=== PATIENT | female | born 1980 | race Caucasian/White ===

== ENCOUNTER 2024-05-25 09:24 | Emergency (ER) | payer MEDICAID, SELFPAY ==
[2024-05-25] VITALS (21 sets, daily range): BP systolic 145–174; BP diastolic 87–109; PULSE 59–76; RESP 12–19; TEMP 36.2–36.4; O2SAT 95–100
--- NOTE | ~2024-05-25 | XR_ITS ---
XR chest 1V portable Ordering provider: Kamran Veliz MD History: 44 years Female with . chest pain, hypertension . Comparison: None. FINDINGS: MEDIASTINUM: The cardiac silhouette is not enlarged. LUNGS: No infiltrates, effusions or pneumothorax. Slightly prominent markings in the lower lobes. OTHER: No free air under the diaphragm. Degenerative changes of the spine. IMPRESSION: Prominent markings in the lower lobes. Otherwise, No acute cardiopulmonary pathology. Reviewed, dictated and finalized at location A.
--- NOTE | 2024-05-25 09:29 | ED.CHESTPAIN ---
HPI - Chest Pain General Chief Complaint: Chest Pain Stated Complaint: hypertension Time Seen by Provider: 05/25/24 09:29 Source: patient Mode of arrival: ambulatory Limitations: no limitations History of Present Illness HPI narrative: 44-year-old female smoker with a history of migraine presents to the ED with a 2 week history of -- sternal pressure which is rated as 4/10. not related to exercise. -- Elevated blood pressure. her blood pressure today was noted to be 148/104 -- shortness of breath. no cough or sputum production -- anxiety MD complaint: chest pain Onset (ago): week(s) ( Two weeks) Timing of current episode: episodic Prior episodes: No Onset: during rest Pain location: substernal Pain radiation: none Severity: mild Pain scale (0-10): 4 Quality: heaviness Relieving factors: nothing Exacerbating factors: nothing Associated symptoms: nausea Treatment prior to arrival: none Risk Factors Coronary artery disease risk factors: smoking history Thoracic aortic dissection risk factors: none Related Data On Oral Contraceptives: No Home Medications Medication Instructions Recorded Confirmed No Home Medications 05/25/24 05/25/24 Allergies Allergy/AdvReac Type Severity Reaction Status Date / Time Penicillins Allergy Rash Verified 05/25/24 09:30 Review of Systems Review of Systems: All systems reviewed & are unremarkable except as noted in HPI and below Constitutional: Constitutional: Reports as per HPI and Reports no additional constitutional complaints Eyes: Eyes: Reports as per HPI and Reports no additional eye complaints ENT: Reports system reviewed and no additional complaints, except as documented and Reports as per HPI Cardiovascular: Cardiovascular: Reports as per HPI, Reports no additional cardiovascular complaints and Reports chest pain Respiratory: Respiratory: Reports as per HPI, Reports no additional respiratory complaints and Reports dyspnea Gastrointestinal: Gastrointestinal: Reports as per HPI and Reports no additional gastrointestinal complaints Genitourinary: Genitourinary: Reports no additional female genitourinary complaints and Reports as per HPI Musculoskeletal: Musculoskeletal: Reports no additional musculoskeletal complaints and Reports as per HPI Integumentary/Breasts: Skin/Breast: Reports system reviewed and no additional complaints, except as docu and Reports as per HPI Neurologic: Reports system reviewed and no additional complaints, except as documented and Reports as per HPI Psychiatric: Psychiatric: Reports no additional psychiatric complaints, Reports as per HPI and Reports anxiety Endocrine: Endocrine: Reports no additional endocrine complaints and Reports as per HPI Hematologic/Lymphatic: Hematologic/Lymphatic: Reports no additional hematologic/lymphatic complaints and Reports as per HPI Allergic/Immunologic: Allergic/Immunologic: Reports no additional allergic/immunologic complaints and Reports as per HPI [facility] Past Medical History Medical History (Updated 05/25/24 @ 10:55 by Kamrna Veliz MD) Migraine Social History Social History (Updated 05/25/24 @ 09:49 by Kamran Veliz MD) Social History: smoker for many years. Has been vaping for the past 2 years Exam Narrative: blood pressure is 170/96 oxygen saturation of 98% on room air with a respiratory rate of 16 Const: General: healthy appearing and no acute distress Nutritional Appearance: well nourished Orientation/consciousness: patient oriented x3 Limitations: no limitations HENMT: Head: normal to inspection Ears: external ears normal Face/Nose/Sinus: Normal external nose present Face and sinus: normal facial exam Mouth: Yes Normal oral and palatal mucosa present Throat: posterior oropharynx normal Eyes: Conjunctivae: conjunctivae normal Pupils: Equal, round and reactive pupils present EOM: EOMs intact bilaterally Direct Ophthalmoscopy: no photophobia Neck: Neck:
--- NOTE | 2024-05-25 09:31 | ECG_ITS ---
Test Date: 2024-05-25 09:35:28 Measurements Intervals [place] Rate: 70 P: 56 MT: 160 QRS: -13 QRSD: 100 T: 30 QT: 391 QTc: 422 Interpretive Statements SINUS RHYTHM NONSPECIFIC T-WAVE ABNORMALITY No previous ECG available for comparison Electronically Signed On 05-25-2024 10:46:27 CDT by Viky Delacruz M.D.
[2024-05-25 09:46] LABS: Basophils Absolute Auto 0.04 K/mm3 (0.00-0.10); Basophils Percent Auto 0.5 % (0.0-1.0); Eosinophils Absolute Auto 0.15 K/mm3 (0.02-0.50); Hematocrit 42.4 % (35.0-49.0); Hemoglobin 14.3 g/dL (12.0-15.0); Immature Granulocyte Absolute 0.05 K/mm3 (0.00-0.00); Immature Granulocyte Percent A 0.7 % (0.0-0.0); Lymphocytes Absolute Auto 1.43 K/mm3 (1.10-4.50); Lymphocytes Percent Auto 19.5 % (18.0-42.0); Mean Corpuscular HGB Conc 33.7 g/dL (32-36); Mean Corpuscular Hemoglobin 29.8 pg (27.0-31.0); Mean Corpuscular Volume 88.3 fL (78.0-102.0); Mean Platelet Volume 9.4 fl (9.2-11.8); Monocytes Percent Auto 5.4 % (2.0-11.0); Neutrophils Absolute Auto 5.28 K/mm3 (1.70-7.20); Neutrophils Percent Auto 71.9 % (50.0-70.0); Platelet Count Result 207 K/mm3 (150-420); Red Cell Distribution Width 12.8 % (11.6-14.4); White Blood Count 7.4 K/mm3 (4.8-10.8)
[2024-05-25 10:01] LABS: INR 0.9; Partial Thromboplastin Time 27.4 Sec (23.9-30.70); Prothrombin Time 10.3 Seconds (9.50-12.1)
[2024-05-25 10:03] LABS: Add Urine Microscopic? YES; Appearance Urine Clear (Clear); Bilirubin Urine Negative (Negative); Blood Urine 2+ (Negative); Color Urine Light Yellow (Yellow); Glucose Urine UA Negative (Negative); Ketones Urine Negative (Negative); Leukocyte Esterase Ur 2+ LEU/UL (Negative); Nitrate Urine Negative (Negative); Protein Urine Negative (Negative); Specific Grav Ur 1.015 (1.010-1.020); Urobilinogen Urine 0.2 mg/dL (0.2-1.0)
[2024-05-25 10:04] LABS: Pregnancy On Board Control Positive; Urine Pregnancy Test Negative
[2024-05-25 10:07] LABS: Lactic Acid Reflex 1.3 mmol/L (0.4-2.0)
[2024-05-25 10:09] LABS: Bacteria Urine 2+ /hpf; Squamous Epithelial Cell Urine Moderate /hpf (Few)
[2024-05-25 10:13] LABS: Alanine Aminotransferase 16 U/L (14-59); Albumin Level 3.6 g/dL (3.4-5.0); Alkaline Phosphatase 80 U/L (46-116); Anion Gap 7 mmol/L (4-12); Aspartate Amino Transferase 15 U/L (15-37); Bilirubin,Total 0.7 mg/dL (0.00-1.00); Blood Urea Nitrogen 9 mg/dL (7-18); Calcium 8.5 mg/dL (8.5-10.1); Carbon Dioxide 30 mmol/L (21-32); Chloride 101 mmol/L (98-108); Estimated CRCL calculation 88 ml/min; Estimated Glomerular Filt Rate > 60; Glucose 89 mg/dL (70-99); NT Pro B Type Natriuretic Pept 118 pg/mL (0-125); Osmolality Calculated 283 mOsm/kg (285-295); Potassium 3.5 mmol/L (3.5-5.1); Sodium 138 mmol/L (136-145); Total Protein 6.9 g/dL (6.4-8.2)
[2024-05-25 10:16] LABS: Thyroid Stimulating Hormone 2.66 uIU/mL (0.36-3.74); Troponin I 4.5 ng/L (0.00-60.4)
== END 2024-05-25 11:13 | disposition home or self-care (01) ==
PROVIDERS: Emergency Provider Internal Medicine Critical Care Medicine
DX: R07.89 Other chest pain (principal); F41.9 Anxiety disorder, unspecified; I10 Essential (primary) hypertension; F17.290 Nicotine dependence, other tobacco product, uncomplicated
CPT/HCPCS: 36415; 71045; 80053; 81001; 81025; 83605; 83880; 84443; 84484; 85025; 85380; 85610; 85730; 87086; 87088; 93005; 99284

== ENCOUNTER 2024-06-03 16:53 | Outpatient (CLI) | payer MEDICAID, SELFPAY ==
[2024-06-03 17:19] LABS: Basophils Absolute Auto 0.06 K/mm3 (0.00-0.10); Basophils Percent Auto 0.7 % (0.0-1.0); Eosinophils Absolute Auto 0.23 K/mm3 (0.02-0.50); Eosinophils Percent Auto 2.6 % (1.0-6.0); Hematocrit 40.1 % (35.0-49.0); Hemoglobin 13.7 g/dL (12.0-15.0); Immature Granulocyte Absolute 0.04 K/mm3 (0.00-0.00); Immature Granulocyte Percent A 0.4 % (0.0-0.0); Lymphocytes Absolute Auto 1.99 K/mm3 (1.10-4.50); Lymphocytes Percent Auto 22.3 % (18.0-42.0); Mean Corpuscular HGB Conc 34.2 g/dL (32-36); Mean Corpuscular Hemoglobin 29.8 pg (27.0-31.0); Mean Corpuscular Volume 87.4 fL (78.0-102.0); Mean Platelet Volume 9.6 fl (9.2-11.8); Monocytes Absolute Auto 0.41 K/mm3 (0.10-0.90); Monocytes Percent Auto 4.6 % (2.0-11.0); Neutrophils Percent Auto 69.4 % (50.0-70.0); Platelet Count Result 251 K/mm3 (150-420); Red Blood Count 4.59 M/mm3 (4.20-5.40); Red Cell Distribution Width 12.6 % (11.6-14.4); White Blood Count 8.9 K/mm3 (4.8-10.8)
[2024-06-03 17:22] LABS: Add Urine Microscopic? YES; Appearance Urine Clear (Clear); Bilirubin Urine Negative (Negative); Blood Urine 2+ (Negative); Color Urine Light Yellow (Yellow); Glucose Urine UA Negative (Negative); Ketones Urine Negative (Negative); Leukocyte Esterase Ur Trace LEU/UL (Negative); Nitrate Urine Negative (Negative); Protein Urine Negative (Negative); Specific Grav Ur 1.025 (1.010-1.020); Urobilinogen Urine 0.2 mg/dL (0.2-1.0)
[2024-06-03 17:28] LABS: Bacteria Urine Trace /hpf; Squamous Epithelial Cell Urine Few /hpf (Few); WBC Urine None seen /hpf (0-3)
[2024-06-03 17:59] LABS: Alanine Aminotransferase 19 U/L (14-59); Albumin Level 3.8 g/dL (3.4-5.0); Alkaline Phosphatase 86 U/L (46-116); Anion Gap 8 mmol/L (4-12); Aspartate Amino Transferase 14 U/L (15-37); Bilirubin,Total 0.5 mg/dL (0.00-1.00); Blood Urea Nitrogen 13 mg/dL (7-18); Calcium 8.9 mg/dL (8.5-10.1); Carbon Dioxide 30 mmol/L (21-32); Chloride 103 mmol/L (98-108); Estimated Glomerular Filt Rate > 60; Glucose 104 mg/dL (70-99); Osmolality Calculated 292 mOsm/kg (285-295); Potassium 3.6 mmol/L (3.5-5.1); Sodium 141 mmol/L (136-145); Total Protein 6.4 g/dL (6.4-8.2); Vitamin B12 308 pg/mL (193-986)
[2024-06-03 18:21] LABS: Erythrocyte Sedimentation Rate 26 mm/hr (0-15)
[2024-06-04 08:08] LABS: FSH 18.8 mIU/mL; LH 7.6 mIU/mL; Prolactin 5.6 ng/mL; Vitamin D 25 Hydroxy 29 ng/mL (30-100)
[2024-06-13 23:54] LABS: Estradiol, Ultrasensitive 15 pg/mL
== END 2024-06-03 16:54 | disposition home or self-care (01) ==
LOC: CHSLAB 16:57
PROVIDERS: PCP Family Medicine; Visit Provider Family Medicine
DX: I10 Essential (primary) hypertension (principal); N92.6 Irregular menstruation, unspecified
CPT/HCPCS: 36415; 80053; 81001; 82306; 82607; 82670; 83001; 83002; 84146; 85025; 85652

== ENCOUNTER 2024-06-04 07:43 | Outpatient (CLI) | payer MEDICAID, SELFPAY ==
[2024-06-04 08:31] LABS: Cholesterol 182 mg/dL (0-200); HDL Direct 44 mg/dL (40-60); LDL Cholesterol Calculated 123 mg/dL (<130); Triglycerides 77 mg/dL (0-150)
== END 2024-06-04 07:44 | disposition home or self-care (01) ==
LOC: CHSLAB 07:45
PROVIDERS: PCP Family Medicine; Visit Provider Family Medicine
DX: I10 Essential (primary) hypertension (principal)
CPT/HCPCS: 36415; 80061

== ENCOUNTER 2024-08-22 17:00 | Emergency (ER) | payer OTHER, SELFPAY ==
[2024-08-22] VITALS (12 sets, daily range): BP systolic 105–160; BP diastolic 62–89; PULSE 74–88; RESP 14–26; TEMP 36.5; O2SAT 92–100
--- NOTE | ~2024-08-22 | XR_ITS ---
CHEST RADIOGRAPH CLINICAL HISTORY: cp hx high bp . COMPARISON: 05/25/2024 TECHNIQUE: Single portable view of the chest. FINDINGS The cardiomediastinal silhouette is unremarkable. The lungs are clear. Visualized osseous structures and soft tissues are unremarkable. IMPRESSION: No focal infiltrate or effusion. Reviewed, dictated and finalized at location A. NT CAREGIVER
--- NOTE | 2024-08-22 17:05 | ECG_ITS ---
Test Date: 2024-08-22 17:11:14 Measurements Intervals [place] Rate: 80 P: 59 [place]: 155 QRS: -20 QRSD: 109 T: 25 QT: 369 QTc: 427 Interpretive Statements SINUS RHYTHM WITH OCCASIONAL VENTRICULAR PREMATURE COMPLEXES ST DEVIATION AND MODERATE T-WAVE ABNORMALITY, CONSIDER ANTERIOR ISCHEMIA BASELINE ARTIFACT- AVR, V1, V3-V6 ABNORMAL ECG Compared to ECG 05/25/2024 09:35:28 POSSIBLE ISCHEMIA NOW PRESENT Electronically Signed On 08-22-2024 18:24:23 RICE FARMWORKER by Eric Howell D.O.
--- NOTE | 2024-08-22 17:06 | ED_ITS ---
HPI - Chest Pain General Chief Complaint: Chest Pain Stated Complaint: chest pain Time Seen by Provider: 08/22/24 17:05 History of Present Illness HPI narrative: Pt presents with chest tightness and nausea since 1500 today. Pt was riding in car when it started. Pt says she has some history of palpitations and cp but CP not this bad. Pt rates 7/10. Denies precip or relieving factors. Pt vapses and has HTN, no other risk factors. Related Data Home Medications Medication Instructions Recorded Confirmed amlodipine 10 mg tablet 10 mg PO DAILY 08/22/24 08/22/24 Allergies Allergy/AdvReac Type Severity Reaction Status Date / Time Penicillins Allergy Rash Verified 08/22/24 17:05 Review of Systems Review of Systems: All systems reviewed & are unremarkable except as noted in HPI and below PMFSH Past Medical History Medical History (Updated 08/22/24 @ 18:54 by Sushila Michael III, DO) Migraine Social History Social History (Updated 05/25/24 @ 09:49 by Kamran Veliz MD) Social History: smoker for many years. Has been vaping for the past 2 years Exam Const: General: healthy appearing and no acute distress Nutritional Appearance: well nourished Orientation/consciousness: patient oriented x3 Limitations: no limitations Neck: Neck: normal visual inspection Chest: Chest palpation & inspection: normal inspection of the chest Resp: Effort & Inspection: normal respiratory effort Auscultation: clear to auscultation bilaterally Cardio: Rate: regular rate Rhythm: regular rhythm GI: GI Palp: Yes Soft to palpation and No Tenderness to palpation present (GI) Auscultation: normal bowel sounds Skin: General skin exam: normal color Rashes: no rashes Wounds: no wounds Neuro: General: patient oriented x3, moves all extremities, no meningeal signs and no focal motor deficits Speech: normal speech Extrem: General: normal to inspection and no clubbing, cyanosis or edema Psych: Mental Status: mental status grossly normal Affect: Anxious affect present Attitude: cooperative Course Vital Signs Vital signs: Vital Signs Temperature 97.7 F 08/22/24 17:00 Pulse Rate 88 08/22/24 17:00 Respiratory Rate 20 08/22/24 17:00 Blood Pressure 160/89 H 08/22/24 17:00 Pulse Oximetry 99 08/22/24 17:00 Oxygen Delivery Room Air 08/22/24 17:00 Temperature 97.7 F 08/22/24 17:00 Pulse Rate 75 08/22/24 19:31 Respiratory Rate 16 08/22/24 19:31 Blood Pressure 133/79 08/22/24 19:31 Pulse Oximetry 94 08/22/24 19:31 Oxygen Delivery Room Air 08/22/24 17:00 MDM - Chest Pain MDM Narrative Medical decision making narrative: Pt presents with chest tightness since [address] changes v3-v6 which are new. will treat like unstable angina and get labs and cxr and give asa and nitrates and morphine. 1800. Pt pain free. first trop neg. will check repeat ekg and transfer. repeat ekg unchanged. discussed with Ruthie Clemente at [facility] will accept for Dr hernandez. Differential Diagnosis Differential diagnosis: Likely pneumothorax, stable angina, unstable angina pectoris, atypical chest pain, st elevation myocardial infarction, costochondritis, chest pain and other (anxiety) Lab Data 08/22/24 17:17 08/22/24 17:17 Labs: Lab Results 08/22/24 Range/Units 17:17 WBC 8.1 (4.8-10.8) K/mm3 RBC 4.94 (4.20-5.40) M/mm3 Hgb 14.8 (12.0-15.0) g/dL Hct 42.7 (35.0-49.0) % MCV 86.4 (78.0-102.0) fL MCH 30.0 (27.0-31.0) pg MCHC 34.7 (32-36) g/dL RDW 12.6 (11.6-14.4) % Plt Count 223 (150-420) K/mm3 MPV 9.1 L (9.2-11.8) fl Immature Gran % (Auto) 0.7 H (0.0-0.0) % Neut % (Auto) 71.9 H (50.0-70.0) % Lymph % (Auto) 20.9 (18.0-42.0) % [place] % (Auto) 4.1 (2.0-11.0) % Eos % (Auto) 1.9 (1.0-6.0) % Baso % (Auto) 0.5 (0.0-1.0) % Lymph # (Auto) 1.69 (1.10-4.50) K/mm3 [place] # (Auto) 0.33 (0.10-0.90) K/mm3 Eos # (Auto) 0.15 (0.02-0.50) K/mm3 Baso # (Auto) 0.04 (0.00-0.10) K/mm3 Abs Immat Gran (auto) 0.06 H (0.00-0.00) K/mm3 Absolute Neuts (auto) 5.81 (1.70-7.20) K/mm3 Absolute Nucleated RBC 0.00 (0.00-0.00) K/mm3 Nucleated RBC % 0.0 (0-0.0) % PT 10.3 (9.50-12.1) Seconds INR 0.9 APTT 27.9 (23.9-30.70) Sec Sodium 142 (136-145) mmol/L Potassium 3.3 L (3.5-5.1) mmol/L Chloride 103 (98-108) mmol/L Carbon Dioxide 27 (21-32) mmol/L Anion Gap 12 (4-12) mmol/L BUN 11 (7-18) mg/dL Creatinine 1.00 (0.55-1.02) mg/dL Estim Creat Clear Calc 80 ml/min Estimated GFR > 60 (59 - ) Glucose 113 H (70-99) mg/dL Calculated Osmolality 294 (285-295) mOsm/kg Calcium 9.5 (8.5-10.1) mg/dL Total Bilirubin 0.7 (0.00-1.00) mg/dL AST 10 L (15-37) U/L ALT 17 (14-59) U/L Alkaline Phosphatase 72 (46-116) U/L Troponin I 4.9 (0.00-60.4) ng/L NT-Pro-B Natriuret Pep 42 (0-125) pg/mL Total Protein 7.6 (6.4-8.2) g/dL Albumin 3.9 (3.4-5.0) g/dL Lipase 47 (16-77) U/L ECG Data EKG #1: Interpretation: nsr rate 80, t wave inversion v3-v6 Discharge Plan Discharge Clinical Impression: Chest pain, Acute electrocardiography changes Patient Disposition: Acute Care Hospital Condition: Improved Prescriptions: No Action amlodipine 10 mg tablet 10 mg PO DAILY Follow-up/Referrals: Ezra Lowe MD [Primary Care Provider] - Quality HEART score for chest pain patients History: moderately suspicious ECG: significant ST depression Age: < or = to 45 years Risk factors: 1 or 2 risk factors Troponin: < or = to 1x normal limit Heart score: 4
[2024-08-22] MEDS: ASPIRIN 81 MG CHEWABLE TABLET 324 MG PO (17:19)
[2024-08-22] MEDS: NITROGLYCERIN SL 0.4 MG TABLET SUBLINGUAL ×3 (17:20→17:32)
[2024-08-22 17:21] LABS: Basophils Absolute Auto 0.04 K/mm3 (0.00-0.10); Basophils Percent Auto 0.5 % (0.0-1.0); Eosinophils Absolute Auto 0.15 K/mm3 (0.02-0.50); Eosinophils Percent Auto 1.9 % (1.0-6.0); Hematocrit 42.7 % (35.0-49.0); Hemoglobin 14.8 g/dL (12.0-15.0); Immature Granulocyte Absolute 0.06 K/mm3 (0.00-0.00); Immature Granulocyte Percent A 0.7 % (0.0-0.0); Lymphocytes Absolute Auto 1.69 K/mm3 (1.10-4.50); Lymphocytes Percent Auto 20.9 % (18.0-42.0); Mean Corpuscular HGB Conc 34.7 g/dL (32-36); Mean Corpuscular Volume 86.4 fL (78.0-102.0); Mean Platelet Volume 9.1 fl (9.2-11.8); Monocytes Absolute Auto 0.33 K/mm3 (0.10-0.90); Monocytes Percent Auto 4.1 % (2.0-11.0); Neutrophils Absolute Auto 5.81 K/mm3 (1.70-7.20); Neutrophils Percent Auto 71.9 % (50.0-70.0); Platelet Count Result 223 K/mm3 (150-420); Red Blood Count 4.94 M/mm3 (4.20-5.40); Red Cell Distribution Width 12.6 % (11.6-14.4); White Blood Count 8.1 K/mm3 (4.8-10.8)
[2024-08-22] MEDS: MORPHINE SULFATE (*CRX) 2 MG/ML INJ IV PUSH (17:23)
--- NOTE | 2024-08-22 17:39 | PC.NURSE ---
PT REPORTS HER PAIN IS MUCH BETTER, HOWEVER SHE REMAINS ANXIOUS AND TEARFUL. PT DENIES ANY NEEDS OR COMPLAINTS. WILL CONTINUE TO MONITOR.
[2024-08-22 17:43] LABS: Alanine Aminotransferase 17 U/L (14-59); Albumin Level 3.9 g/dL (3.4-5.0); Alkaline Phosphatase 72 U/L (46-116); Anion Gap 12 mmol/L (4-12); Aspartate Amino Transferase 10 U/L (15-37); Bilirubin,Total 0.7 mg/dL (0.00-1.00); Blood Urea Nitrogen 11 mg/dL (7-18); Calcium 9.5 mg/dL (8.5-10.1); Carbon Dioxide 27 mmol/L (21-32); Chloride 103 mmol/L (98-108); Estimated CRCL calculation 80 ml/min; Estimated Glomerular Filt Rate > 60; Glucose 113 mg/dL (70-99); INR 0.9; Lipase 47 U/L (16-77); NT Pro B Type Natriuretic Pept 42 pg/mL (0-125); Osmolality Calculated 294 mOsm/kg (285-295); Partial Thromboplastin Time 27.9 Sec (23.9-30.70); Potassium 3.3 mmol/L (3.5-5.1); Prothrombin Time 10.3 Seconds (9.50-12.1); Sodium 142 mmol/L (136-145); Total Protein 7.6 g/dL (6.4-8.2); Troponin I 4.9 ng/L (0.00-60.4)
--- NOTE | 2024-08-22 18:06 | ECG_ITS ---
Test Date: 2024-08-22 18:14:35 Measurements Intervals [place] Rate: 70 P: 43 MS: 157 QRS: -16 QRSD: 99 T: -74 QT: 379 QTc: 410 Interpretive Statements SINUS RHYTHM MODERATE T-WAVE ABNORMALITY, CONSIDER ANTERIOR ISCHEMIA BASELINE ARTIFACT- I, II, III, AVR, AVL, AVF ABNORMAL ECG Compared to ECG 08/22/2024 17:11:14 NO SIGNIFICANT CHANGE Electronically Signed On 08-22-2024 18:25:02 VERIFICATION REP by Eric Howell D.O.
--- NOTE | 2024-08-22 18:11 | PC.NURSE ---
PT IS PAIN FREE AT THIS TIME. REPEAT EKG IS BEING COMPLETED. EX- AND SON HAVE ARRIVED. WILL CONTINUE TO MONITOR.
[2024-08-22] MEDS: NITROGLYCERIN OINTMENT 1 INCH DOSE TRANSDERM (18:51)
--- NOTE | 2024-08-22 18:54 | PC.NURSE ---
PT IS TALKING ON CELL PHONE WITHOUT DISTRESS. PT IS AWAITING ROOM ASSIGNMENT AT [facility] AT THIS TIME. PT DENIES ANY PAIN, NAD NOTED. REPORT TO JAMMIE VICTORIA.
--- NOTE | 2024-08-22 19:05 | PC.NURSE ---
Report received, pt resting and continuing to monitor, pt has been accepted at [facility], awaiting callback for bed assignment. New orders received from [facility].
[2024-08-22] MEDS: POTASSIUM CHLORIDE 20 MEQ ER TABLET 40 MEQ PO (19:07)
[2024-08-22] MEDS: ENOXAPARIN 100 MG/ML SYRINGE SUB-Q (19:08)
--- NOTE | 2024-08-22 19:26 | PC.NURSE ---
Pts mother called from [place], per pt ok to update her mother. Informed pts mother of medications given and need for transfer and f/u w/ cardiology due to EKG changes and findings. After speaking w/ mother whe states she feels much better and appreciated this RN speaking w/ her and updating her. Pt continues to rest, monitor NSR and VSS.
--- NOTE | 2024-08-22 19:39 | PC.NURSE ---
Call back from lauryn Lara Sup[facility] and pt will go to Rm 200.
--- NOTE | 2024-08-22 19:45 | PC.NURSE ---
Report given to Nahid in IMU at [facility] for transfer.
[2024-08-22 20:14] LABS: Troponin I 5.2 ng/L (0.00-60.4)
== END 2024-08-22 20:41 | disposition short-term general hospital (02) ==
PROVIDERS: Emergency Provider Emergency Medicine; PCP Family Medicine
DX: R07.9 Chest pain, unspecified (principal); I10 Essential (primary) hypertension; F17.290 Nicotine dependence, other tobacco product, uncomplicated
CPT/HCPCS: 36415; 71045; 80053; 83690; 83880; 84484; 85025; 85610; 85730; 93005; 96372; 96374; 99285; A9270; J1650; J2270

== ENCOUNTER 2024-08-22 22:10 | Observation (INO) | payer OTHER, SELFPAY ==
--- NOTE | ~2024-08-22 | NM_ITS ---
EXAMINATION: NM patrice stress w perfusion DATE: 08/23/2024 14:01 INDICATION: Chest pain TECHNIQUE: Rest images were obtained in supine position following intravenous administration of 11.2 mCi Tc99m tetrofosmin (Myoview). The patient was infused intravenously with Lexiscan (Regadenoson). T hen, 34.7 mCi Tc99m tetrofosmin (Myoview) was administered intravenously, and stress images were obta ined in the supine position. Additional repeat post stress imaging was obtained in the prone position . Data was reconstructed into short axis and horizontal and vertical long axis SPECT images. Gated SP ECT images were also obtained. COMPARISON: None. FINDINGS: There is likely diaphragmatic attenuation artifact along the inferior wall involving the mi d to basilar inferior and inferolateral segments on the stress and more prominently on the rest image s obtained in the supine position which normalizes on the post stress imaging obtained in the prone p osition. Additional likely artifactual regions of decreased activity at the apical inferior segment o n the post stress imaging obtained in the prone position but with normal perfusion at this location o n the post stress imaging in the supine position. There is no definite reversible or fixed perfusion abnormality to suggest ischemia or infarction. There is normal left ventricular chamber size, wall m otion and ejection fraction. Left ventricular ejection fraction measures 54%. IMPRESSION: 1. Normal myocardial perfusion at rest and during stress. 2. Left ventricular ejection fraction measuring 54%. Reviewed, dictated and finalized at location B. PRESIDENT [employer]
[2024-08-22 21:15] VITALS: BP 141/90; PULSE 66; RESP 18; TEMP 36.6; O2SAT 98
[2024-08-22 21:27] VITALS: BMI 35.3
--- NOTE | 2024-08-22 21:28 | ADMGEN ---
5: This patient, Renée Sherwood, was admitted to IMU Room 200-01. Patient/family oriented to hospital policies and general routines including ID bracelet, bed and alarms, visiting hours, pain management, procedures, bathroom and other care routines, personal items, smoking policy, room service/diet, and visiting hours. Information on how to activate the Rapid Response Team has been discussed. Patient/Family are encouraged to report perceived risks to care and to ask questions if they do not understand what they are told or what they should do.
[2024-08-22 21:40] VITALS: BMI 35.3
--- NOTE | 2024-08-22 21:56 | ECG_ITS ---
Test Date: 2024-08-22 22:10:06 Measurements Intervals [place] Rate: 57 P: 45 ND: 158 QRS: -24 QRSD: 97 T: -66 QT: 396 QTc: 388 Interpretive Statements SINUS BRADYCARDIA EARLY PRECORDIAL R/S TRANSITION MODERATE T-WAVE ABNORMALITY, CONSIDER ANT/INF ISCHEMIA BASELINE ARTIFACT- II, III, AVF ABNORMAL ECG Compared to ECG 08/22/2024 18:14:35 HEART RATE HAS DECREASED Electronically Signed On 08-23-2024 05:44:57 [employer]ANESE PROFESSOR by Eric Howell D.O.
[2024-08-22 21:57] VITALS: PULSE 73
[2024-08-22] MEDS: ACETAMINOPHEN 325 MG TABLET 650 MG PO (22:09)
[2024-08-22 23:01] LABS: Cholesterol 175 mg/dL (0-200); HDL Direct 47 mg/dL; Magnesium 2.2 mg/dL (1.6-2.3); Potassium 3.6 mmol/L (3.4-5.0); Triglycerides 85 mg/dL (<150)
--- NOTE | 2024-08-22 23:07 | P.HP_ITS ---
H&P: HPI History of Present Illness Date/Time: 08/22/24 22:00 Chief Complaint: Chest pain, abnormal EKG. Narrative: This is a pleasant 44-year-old female with history of migraine headaches, hypertension, and anxiety who is being directly admitted to the IMU from the emergency department at the [facility] with chest pain and abnormal EKG. The patient provides the following history. While driving home from work this evening she developed sudden onset substernal chest heaviness associated with palpitations and mild nausea and lightheadedness. Initially she thought it was due to anxiety as she has had a lot personal stress at home, much more so than usual. This was different than her normal anxiety however and it did not improve with rest so she went to the emergency department. Vital signs were stable on arrival. Initial troponin was normal and the remainder of her labs were really unremarkable. Chest x-ray was normal. EKG showed ST deviation and T-wave inversions in the anterolateral leads. She was given nitroglycerin with improvement her symptoms. She was given a dose of enoxaparin 1 mg/kg and transfer was initiated to [place] for cardiology consultation. At the time my evaluation she is not having any chest discomfort but she complains of a headache from the nitroglycerin. Prior to today she has not had chest pain or exertional chest pain. She has no knowledge of early-onset heart disease in her family. She also denies hormone use, recent travel, lower extremity edema, and calf pain. She has not had epigastric abdominal pain, bloating, belching, or symptoms of indigestion. No recent illnesses. Review of Systems Review of Systems: 12 systems were reviewed and are negativ e except for as per HPI. 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 Code status: Full code. Smoking status: Light tobacco smoker Tobacco type: e-cigarettes/vaping Additional smoking assessment comments: smoked cigarettes until 2023, vapes nicotine products x2 years Alcohol intake: never Substance use type: does not use Do You Feel Safe in your Home?: Yes Lack of Transportation: No Lack of Food: Never True Current Housing: I Have Housing Concerned About Future Housing: No Difficulty Paying Gas/Electric Bills: No Difficulty Paying for Meds: No Currently Unemployed: No Education: Decline to Answer Difficulty w/ Childcare or Family Care: No Spiritual care concerns: No Meds Home Medications and Allergies Home Medications Medication Instructions Recorded Confirmed Type acetaminophen 500 mg tablet 1,000 mg PO DAILY 08/22/24 08/22/24 History (Acetaminophen Extra Strength) amlodipine 10 mg tablet 10 mg PO DAILY 08/22/24 08/22/24 History fluoxetine 40 mg capsule 40 mg PO DAILY 08/22/24 08/22/24 History sumatriptan succinate 50 mg tablet 50 mg PO DAILY PRN Migraine 08/22/24 08/22/24 History Headache Allergies Allergy/AdvReac Type Severity Reaction Status Date / Time Penicillins Allergy Rash Verified 08/22/24 17:05 Vital Signs Vital Signs - 24 hr 08/22/24 21:15 08/22/24 21:57 08/22/24 21:15 Temperature 98 F Pulse Rate 73 66 Respiratory Rate 18 Blood Pressure 141/90 H Pulse Oximetry 98 Oxygen Delivery Room Air Exam Narrative: General: Well-developed, nontoxic-appearing female sitting up in bed. Weight: 5.3 kg. BMI: 35.3. HEENT: PERRL, EOMI. Sclera anicteric. Oral mucosa moist. Neck: Supple. Respiratory: Lungs are clear to auscultation bilaterally. Cardiovascular: Regular rate and rhythm with S1-S2. Chest: No tenderness to palpation over the chest wall appear Gastrointestinal: Abdomen is soft, nontender, and nondistended with positive bowel sounds. Skin: Warm and dry. No rash or lesions on limited exam. Extremities: No cyanosis, clubbing, or edema. No palpable knots or cords. Radial and pedal pulses intact. Neurological: Alert. Cranial nerves 2-12 are grossly intact. No gross focal deficits to casual conversation. Psychiatric: Pleasant and cooperative with appropriate mood and sad affect. She is tearful. H&P: Results Labs Labs: BMP 08/22/24 22:33 Potassium 3.6 08/22/24 Range/Units 17:17 WBC 8.1 (4.8-10.8) K/mm3 RBC 4.94 (4.20-5.40) M/mm3 Hgb 14.8 (12.0-15.0) g/dL Hct 42.7 (35.0-49.0) % MCV 86.4 (78.0-102.0) fL MCH 30.0 (27.0-31.0) pg MCHC 34.7 (32-36) g/dL RDW 12.6 (11.6-14.4) % Plt Count 223 (150-420) K/mm3 MPV 9.1 L (9.2-11.8) fl Immature Gran % (Auto) 0.7 H (0.0-0.0) % Neut % (Auto) 71.9 H (50.0-70.0) % Lymph % (Auto) 20.9 (18.0-42.0) % [place] % (Auto) 4.1 (2.0-11.0) % Eos % (Auto) 1.9 (1.0-6.0) % Baso % (Auto) 0.5 (0.0-1.0) % Lymph # (Auto) 1.69 (1.10-4.50) K/mm3 [place] # (Auto) 0.33 (0.10-0.90) K/mm3 Eos # (Auto) 0.15 (0.02-0.50) K/mm3 Baso # (Auto) 0.04 (0.00-0.10) K/mm3 Abs Immat Gran (auto) 0.06 H (0.00-0.00) K/mm3 Absolute Neuts (auto) 5.81 (1.70-7.20) K/mm3 Absolute Nucleated RBC 0.00 (0.00-0.00) K/mm3 Nucleated RBC % 0.0 (0-0.0) % PT 10.3 (9.50-12.1) Seconds INR 0.9 APTT 27.9 (23.9-30.70) Sec Sodium 142 (136-145) mmol/L Potassium 3.3 L (3.5-5.1) mmol/L Chloride 103 (98-108) mmol/L Carbon Dioxide 27 (21-32) mmol/L Anion Gap 12 (4-12) mmol/L BUN 11 (7-18) mg/dL Creatinine 1.00 (0.55-1.02) mg/dL Estim Creat Clear Calc 80 ml/min Estimated GFR > 60 (59 - ) Glucose 113 H (70-99) mg/dL Calculated Osmolality 294 (285-295) mOsm/kg Calcium 9.5 (8.5-10.1) mg/dL Total Bilirubin 0.7 (0.00-1.00) mg/dL AST 10 L (15-37) U/L ALT 17 (14-59) U/L Alkaline Phosphatase 72 (46-116) U/L Troponin I 4.9 (0.00-60.4) ng/L NT-Pro-B Natriuret Pep 42 (0-125) pg/mL Total Protein 7.6 (6.4-8.2) g/dL Albumin 3.9 (3.4-5.0) g/dL Lipase 47 (16-77) U/L Assessment and Plan Assessment and plan (1) Chest pain: Code(s): R07.9 - Chest pain, unspecified Status: Acute (2) Acute electrocardiography changes: Code(s): R94.31 - Abnormal electrocardiogram [ECG] [EKG] Status: Acute (3) Hypertension: Code(s): I10 - Essential (primary) hypertension Status: Acute (4) Anxiety: Code(s): F41.9 - Anxiety disorder, unspecified Status: Acute Plan The patient is being directly admitted from the outside facility with chest pain EKG changes as detailed in HPI. Labs, imaging, EKG, and all reports were personally reviewed. She has had 2 negative troponins thus far but EKG changes remain. This does not seem to be GI or musculoskeletal in etiology. Pulmonary embolism seems less likely by history and her D-dimer was negative. She will be NPO after midnight for possible stress test tomorrow. Cardiology has been consulted. Blood pressures were reviewed and they are stable. Her anxiety and stress seem to be much worse recently and she was encouraged to follow-up with a counselor as an outpatient. Cessation of vaping is encouraged. Her home medications will be reviewed and resumed as appropriate. Findings and treatment plan were discussed with the patient. Questions were solicited and answered to satisfaction. The patient's medical management will be taken over by the hospitalist team in a.m. Quality VTE Prophylaxis VTE prophylaxis: pharmacologic ordered The patient has been admitted under observation status. Hospitalist MIPS Advance Care Plan I have confirmed that the patient's Advanced Care Plan is present, code status is documented, or surrogate decision maker is listed in patient medical record.: Yes Medication Reconciliation I have utilized all available resources to obtain, update and review the patients current medications (includes all prescriptions, OTC, herbals, cannabis, and nutritional supplements).: Yes
[2024-08-22 23:08] LABS: D Dimer < 0.27 ug/mL (<0.48)
[2024-08-22 23:11] LABS: LDL Cholesterol Direct 93 mg/dL
[2024-08-22 23:14] LABS: Troponin I < 0.012 ng/mL (0.000-0.034)
[2024-08-22 23:46] VITALS: BP 110/54; PULSE 75; RESP 18; TEMP 36.7; O2SAT 100
[2024-08-23] VITALS (13 sets, daily range): BP systolic 111–136; BP diastolic 58–79; PULSE 59–92; RESP 12–19; TEMP 36.6–36.7; O2SAT 96–100
[2024-08-23 05:08] LABS: Anion Gap 5 mmol/L (4-12); Blood Urea Nitrogen 11 mg/dL (7-17); Calcium 8.9 mg/dL (8.4-10.2); Carbon Dioxide 28 mmol/L (22-30); Chloride 105 mmol/L (98-107); Estimated CRCL calculation 101 ml/min; Estimated Glomerular Filt Rate > 60; Glucose 97 mg/dL (65-110); Magnesium 2.5 mg/dL (1.6-2.3); Potassium 3.3 mmol/L (3.4-5.0); Sodium 138 mmol/L (137-145)
[2024-08-23] MEDS: ACETAMINOPHEN 325 MG TABLET 650 MG PO ×2 (05:15→15:51)
--- NOTE | 2024-08-23 06:53 | PC.NURSE ---
0652: Update given to patient contact, Heidi Ross.
[2024-08-23] MEDS: POTASSIUM CHLORIDE 20 MEQ ER TABLET 40 MEQ PO (08:36)
[2024-08-23] MEDS: amLODIPine BESYLATE 10 MG TABLET PO (08:37)
[2024-08-23] MEDS: ENOXAPARIN 40 MG/0.4 ML SYRINGE SUB-Q (08:37)
[2024-08-23] MEDS: FLUoxetine HCL 20 MG CAPSULE 40 MG PO (08:37)
--- NOTE | 2024-08-23 09:37 | P.CONCA_ITS ---
Assessment and Plan Assessment and plan (1) Atypical chest pain: Code(s): R07.89 - Other chest pain Status: Inactive Assessment and Plan: Atypical chest pain with negative serial troponin levels. She does have inferior and anterior T wave inversions on her EKGs. Risk factors of smoking history and hypertension. Will order a nuclear stress test to be alcazar today. If this is negative for any ischemia and her EF is normal, she can be discharged from a cardiac point of view. History of Present Illness History of Present Illness Consult date/time: 08/23/24 09:37 Requesting physician: Ruthie Toro PA-C Consult reason: chest pain Reason For Visit: Chest pain Narrative: Renée Sherwood is a 44 year old female with no cardiac history transferred to [facility] from [facility] for evaluation of chest pain and abnormal EKG. She had a sudden onset of substernal chest pain yesterday while driving home from work. She describes this as a tight/squeezing feeling. She also felt palpitations, shortness of breath, and nausea at this time. She pulled over for a few minutes but as the discomfort did not resolve she went to the emergency department. She states she was given a bunch of medicine in the ER at [facility] and her pain resolved right away. She now has a very mild chest discomfort this morning. She otherwise feels well aside from being very anxious about being in the hospital. She is tearful throughout my conversation with her and states she is under a lot of stress at home. Review of Systems Review of Systems: All systems reviewed & are unremarkable except as noted in HPI and below PMFSH Past Medical History Medical History Anxiety Hypertension Migraine Mild cerebral palsy mild left lower extremity weakness Surgical History Surgical History History of arthroscopy of hip left History of tonsillectomy Family History Family History Father Hypertension Mother Hypertension Social History Social History Social History: Surrogate medical decision maker: Gwen Kline, mother. Code status: Full code. Smoking status: Light tobacco smoker Tobacco type: e-cigarettes/vaping Additional smoking assessment comments: smoked cigarettes until 2023, vapes nicotine products x2 years Alcohol intake: never Substance use type: does not use Do You Feel Safe in your Home?: Yes Lack of Transportation: No Lack of Food: Never True Current Housing: I Have Housing Concerned About Future Housing: No Difficulty Paying Gas/Electric Bills: No Difficulty Paying for Meds: No Currently Unemployed: No Education: Decline to Answer Difficulty w/ Childcare or Family Care: No Spiritual care concerns: No Meds Home Medications and Allergies Home Medications Medication Instructions Recorded Confirmed Type acetaminophen 500 mg tablet 1,000 mg PO DAILY 08/22/24 08/22/24 History (Acetaminophen Extra Strength) amlodipine 10 mg tablet 10 mg PO DAILY 08/22/24 08/22/24 History fluoxetine 40 mg capsule 40 mg PO DAILY 08/22/24 08/22/24 History sumatriptan succinate 50 mg tablet 50 mg PO DAILY PRN Migraine 08/22/24 08/22/24 History Headache Allergies Allergy/AdvReac Type Severity Reaction Status Date / Time Penicillins Allergy Rash Verified 08/22/24 17:05 Vital Signs Vital Signs - 24 hr 08/22/24 21:15 08/22/24 21:57 08/22/24 21:15 Temperature 36.6 C Pulse Rate 73 66 Respiratory Rate 18 Blood Pressure 141/90 H Pulse Oximetry 98 Oxygen Delivery Room Air 08/22/24 23:46 08/23/24 00:00 08/23/24 00:00 Temperature 36.7 C Pulse Rate 75 70 Respiratory Rate 18 Blood Pressure 110/54 L Pulse Oximetry 100 Oxygen Delivery Room Air 08/23/24 02:00 08/23/24 03:49 08/23/24 04:12 Temperature 36.7 C Pulse Rate 59 L 67 Respiratory Rate 18 Blood Pressure 111/58 L Pulse Oximetry 100 Oxygen Delivery Room Air 08/23/24 04:00 08/23/24 05:59 08/23/24 07:37 Temperature 36.6 C Pulse Rate 59 L 59 L 59 L Respiratory Rate 12 Blood Pressure 136/67 Pulse Oximetry 98 Oxygen Delivery Exam Const: General: comfortable, no acute distress, alert and awake Orientation/consciousness: patient oriented x3 HENMT: Head: normal to inspection Eyes: General: appearance normal, both eyes and all related structures Pupils: Equal, round and reactive pupils present Neck: Neck: normal visual inspection, supple and no JVD Carotids: normal carotid upstroke Resp: Effort & Inspection: normal respiratory effort Auscultation: clear to auscultation bilaterally Cardio: Rate: regular rate Rhythm: regular rhythm Heart sounds: S1 normal heart sound present, S2 normal heart sound present and no murmurs GI: Auscultation: normal bowel sounds Skin: General skin exam: normal color Neuro: General: patient oriented x3 Cranial nerves: Yes Equal, round and reactive pupils present Extrem: General: normal to inspection Psych: Appearance: grossly normal Mental Status: mental status grossly normal Affect: Anxious affect present Results Labs and Meds 08/23/24 04:12 Lab results: Cardiac Enzymes 08/22/24 Range/Units 22:33 Troponin I < 0.012 (0.000-0.034) ng/mL Lipids 08/22/24 Range/Units 22:33 Triglycerides 85 (<150) mg/dL Cholesterol 175 (0-200) mg/dL Comprehensive Metabolic Panel 08/22/24 08/23/24 Range/Units 22:33 04:12 Sodium 138 (137-145) mmol/L Potassium 3.6 3.3 L (3.4-5.0) mmol/L Chloride 105 (98-107) mmol/L Carbon Dioxide 28 (22-30) mmol/L BUN 11 (7-17) mg/dL Creatinine 0.80 (0.7-1.0) mg/dL Glucose 97 (65-110) mg/dL Calcium 8.9 (8.4-10.2) mg/dL Intake and Output 08/22/24 08/23/24 08/23/24 23:59 07:59 15:59 Output Total 500 500 Balance -500 -500 Output: Urine 500 500 Other: Intake, Other Source NPO Patient Weight 08/23/24 23:59 Weight 101.8 kg
--- NOTE | 2024-08-23 10:06 | EST_ITS ---
Patient Info Name: Renée Sherwood Age: 44 years : 1980 Gender: Female Ht: 68 in Wt: 224 lbs BSA: 2.24 m2 HR: 60 bpm BP: 127 / 89 mmHg Exam Date: 08/23/2024 12:30 PM Exam Location: Echo Lab Patient Status: Inpatient Admit Date: 08/22/2024 Staff Ordering Physician: Dianne Brown Attending Provider: Anthony Sharif MD Exercise Technologist: Hunter ABARCA RECORDS MANAGEMENT CLERK Nurse: Dianne Brown APN Exam Type: CA stress patrice w NM Study Info A regadenoson stress test was performed. Summary 1. No abnormal ST/T wave changes diagnostic of ischemia with Lexiscan. 2. Please correlate with nuclear medicine images, reported separately. 3. Stress test supervised by Dianne Brown NP. Stress test interpreted by Viky Delacruz MD. Protocol: Lexiscan Stress ECG Details Stage: REST Duration (min): 8 min : 39 sec HR (bpm): 60 SBP (mmHg): 127 DBP (mmHg): 89 Stage: REST Duration (min): 12 min : 6 sec HR (bpm): 65 SBP (mmHg): 127 DBP (mmHg): 89 Stage: STAGE 1 Duration (min): 1 min : 0 sec HR (bpm): 98 SBP (mmHg): 137 DBP (mmHg): 87 Stage: RECOVERY Duration (min): 1 min : 0 sec HR (bpm): 92 SBP (mmHg): 137 DBP (mmHg): 87 Stage: RECOVERY Duration (min): 2 min : 0 sec HR (bpm): 88 SBP (mmHg): 137 DBP (mmHg): 87 Stage: RECOVERY Duration (min): 3 min : 0 sec HR (bpm): 84 SBP (mmHg): 127 DBP (mmHg): 83 Stage: RECOVERY Duration (min): 3 min : 9 sec HR (bpm): 83 SBP (mmHg): 127 DBP (mmHg): 83 Rest HR: 65 bpm Peak HR: 98 bpm Rest Sys BP: 127 mmHg Peak Sys BP: 137 mmHg Max Pred HR: 178 bpm % Max Pred HR: 55 % Target HR: 151 bpm Max RPP: 13,426 bpm*mmHg Total Time: 1 min : 0 sec Rest Caro BP: 89 mmHg Peak Caro BP: 87 mmHg Total Dose: 0.4 mg Resting ECG Sinus rhythm. Baseline T wave abnormality in the anterior, lateral, and inferior leads. Stress ECG No abnormal ST/T wave changes diagnostic of ischemia with Lexiscan. Arrhythmias None. Report Signatures
--- NOTE | 2024-08-23 16:30 | P.DS_ITS ---
DS: Admitting Diagnosis Discharge Date 08/23/24 Admitting Diagnosis Chest pain DS: Discharge Diagnosis Discharge Diagnosis (1) Chest pain: Code(s): R07.9 - Chest pain, unspecified Status: Inactive (2) Acute electrocardiography changes: Code(s): R94.31 - Abnormal electrocardiogram [ECG] [EKG] Status: Inactive (3) Hypertension: Code(s): I10 - Essential (primary) hypertension Status: Acute (4) Anxiety: Code(s): F41.9 - Anxiety disorder, unspecified Status: Acute DS: Summary Hospital Course Reason for hospitalization: 44yo female with migraine headaches, hypertension, and anxiety who is being directly admitted to the IMU from the emergency department at the [facility] with chest pain and abnormal EKG. Please see H&P for details. Hospital Course: In the ED, vital signs were stable on arrival. Initial troponin was normal and the remainder of her labs were unremarkable. Chest x-ray was normal. EKG showed ST deviation and T-wave inversions in the anterolateral leads. She was given nitroglycerin with improvement of her symptoms. She was given a dose of enoxaparin 1 mg/kg and transferred to [place]. DDimer was negative. Troponin negative x3. TSH normal. Cardiology was consulted. Lexiscan stress test showing no abnormal ST/T wave changes diagnostic of ischemia with Lexiscan. Images showing normal myocardial perfusion at rest and during stress with left ventricular ejection fraction measuring 54%. There was so diaphragmatic attenuation. Please see report for details. Symptoms resolved. She is eager for discharge. The patient overall did well and was able to be discharged home on 08/23/24. Status at Discharge Cognitive/behavioral status at discharge: stable Time Spent with Patient Time attestation: Total time spent providing and/or coordinating discharge services: 34 minutes Time spent: Greater than 30 minutes Exam Narrative: AF 98.1 134/76 69 16 97% ra Gen - NARD Chest - CTA bilaterally, nml RR CV - RRR S1/S2. Tele showing no significant dysrhythmias Abd - Soft, NT/ND, Positive BS Ext - No pedal edema Psych - Nml mood and affect Skin - Warm and dry DS: Data Data Completed and Pending Labs on day of discharge: Labs from last 24 hours 08/23/24 08/22/24 08/22/24 04:12 22:33 22:32 D-Dimer < 0.27 Sodium 138 Potassium 3.3 L 3.6 Chloride 105 Carbon Dioxide 28 Anion Gap 5 BUN 11 Creatinine 0.80 Estim Creat Clear Calc 101 Estimated GFR > 60 Glucose 97 Calcium 8.9 Magnesium 2.5 H 2.2 Troponin I < 0.012 Triglycerides 85 Cholesterol 175 LDL Cholesterol Direct 93 HDL Direct 47 TSH (Reflex) 2.400 Discharge Plan Discharge Attending physician on discharge: Anthony Sharif Consulting providers: Viky Delacruz Discharging Clinician: Anthony Sharif Anticipated Discharge Date/Time: 08/23/24 16:39 Patient Disposition: Home, Self-Care Activity: as tolerated Diet: heart healthy Discharge Instructions: Contact your doctor or call 911 and come to the Emergency Room if you have recurrent chest pain or other worrisome symptoms. Follow-up with your primary care provider in 1-2 weeks. Please call for appointment. Thank you for using [facility] for your health care needs. Patient Instructions: Antibiotic Form, Chest Pain (GEN), How to Stop Smoking (GEN), Cigarette Smoking and Your Health (GEN) Stand Alone Forms: General Discharge Information Follow-up/Referrals: Ezra Lowe MD [Primary Care Provider] - Call for Appointment Discharge Medications: Continued amlodipine 10 mg tablet 10 mg PO DAILY fluoxetine 40 mg capsule 40 mg PO DAILY sumatriptan succinate 50 mg tablet 50 mg PO DAILY PRN (Reason: Migraine Headache) acetaminophen [Acetaminophen Extra Strength] 500 mg Tablet 1,000 mg PO DAILY Date of admission: 08/22/24 22:10 Primary Care Provider: Ezra Lowe Admitting Provider: Anthony Sharif Attending physician on admission: Anthony Sharif Condition: Stable Hospitalist MIPS Heart Failure (Exclusion) Patient has history of Heart Transplant or Left Ventricular Assistive Device?: No IF YES, STOP HERE Heart Failure (Qualifier) Patient has current or prior documentation of LVEF less than or equal to 40%, or mod/servere depressed LVSF?: No IF NO, STOP HERE
== END 2024-08-23 18:00 | disposition home or self-care (01) ==
PROVIDERS: Physician Assistant; Admitting Provider Internal Medicine; PCP Family Medicine; Visit Provider Internal Medicine
DX: R07.89 Other chest pain (principal); R94.31 Abnormal electrocardiogram [ECG] [EKG]; I10 Essential (primary) hypertension; F41.9 Anxiety disorder, unspecified; G80.9 Cerebral palsy, unspecified; G43.909 Migraine, unspecified, not intractable, without status migrainosus; F17.290 Nicotine dependence, other tobacco product, uncomplicated; Z79.899 Other long term (current) drug therapy
CPT/HCPCS: 36415; 78452; 80048; 80061; 83735; 84132; 84443; 84484; 85380; 93005; 93017; 96372; A9270; A9502; G0378; G0379; J1650; J2785